=== PATIENT | female | born 1955 | race Caucasian/White ===

== ENCOUNTER 2018-11-27 09:27 | Emergency (ER) | payer BC ==
[2018-11-27 10:03] VITALS: BP 160/82
--- NOTE | 2018-11-27 10:10 | UC ---
Eye Complaint HPI - HPI Summary HPI Summary: 63-year-old female who had a stye in her right eye approximate 1 week ago. It has improved however she states it continues to bother her with some yellowish crustiness to it. She denies any visual changes. - History of Current Complaint Chief Complaint: UCEye Stated Complaint: RT EYE COMPLAINT Time Seen by Provider: 11/27/18 09:57 Hx Obtained From: Patient ?: No Onset/Duration: Gradual Onset Timing: Constant Severity Initially: Mild Severity Currently: Mild Pain Intensity: 0 Location of Injury: Other Aggravating Factor(s): Nothing - No injury Alleviating Factor(s): Nothing Associated Signs And Symptoms: Positive: Drainage (Purulent) - Patient has had some drainage from the stye and some crustiness in that area. - Allergies/Home Medications Allergies/Adverse Reactions: Allergies Allergy/AdvReac Type Severity Reaction Status Date / Time No Known Allergies Allergy Verified 11/27/18 10:03 Home Medications: Home Medications Cholecalciferol (Vitamin D3) [Vitamin D3] 1 tab PO DAILY 11/27/18 [History Confirmed 11/27/18] PMH/Surg Hx/FS Hx/Imm Hx Previously Healthy: Yes - Surgical History Surgical History: None Surgery Procedure, Year, and Place: c section - Family History Known Family History: Positive: None - Social History Alcohol Use: Rare Substance Use Type: None Smoking Status (MU): Former Smoker When Did the Patient Quit Smoking/Using Tobacco: 1998 Household Exposure Type: Cigarettes - Immunization History Most Recent Influenza Vaccination: not this season Review of Systems All Other Systems Reviewed And Are Negative: Yes Eyes: Positive: Drainage - Patient has had some drainage from the stye. The conjunctivae is erythematous around the stye but only there. The sclerae are not inflamed. Is Patient Immunocompromised?: No Physical Exam Triage Information Reviewed: Yes Appearance: Well-Appearing, No Pain Distress, Well-Nourished Vital Signs: Initial Vital Signs Temp 98.1 F 11/27/18 10:00 Pulse 66 11/27/18 10:00 Resp 18 11/27/18 10:00 BP 160/82 11/27/18 10:00 Pulse Ox 100 11/27/18 10:00 Vital Signs Reviewed: Yes Eyes: Positive: Conjunctiva Clear, Other: - [place], EOMI, patient has a stye at the outer canthus of the right lower eyelid which has some crustiness to it. The remaining conjunctiva and sclera are not injected. Respiratory: Positive: Lungs clear, Normal breath sounds, No respiratory distress, No accessory muscle use Cardiovascular: Positive: RRR, No Murmur, Pulses Normal, Brisk Capillary Refill Eye Complaint Course/Dx - Course Course Of Treatment: Patient is comfortable here. I'm going to treat stye with some erythromycin ointment twice a day topically and the patient is to follow-up with her primary care provider if no improvement by Saturday. - Differential Dx/Diagnosis Provider Diagnosis: Stye external Discharge - Sign-Out/Discharge Documenting (check all that apply): Patient Departure All imaging exams completed and their final reports reviewed: No Studies - Discharge Plan Condition: Good Disposition: HOME Prescriptions: Erythromycin OPHTH.OINT* [Ilotycin OPHTH.OINT*] 1 applic RIGHT EYE BID 7 Days # 1 ophth.oint Patient Education Materials: Stye (ED) Referrals: Valentín Beth MD [Primary Care Provider] - Additional Instructions: Apply cold compresses to right eye have swelling, apply the ointment to the stye only twice a day, try not to rub her eye, follow-up with your primary care provider on Saturday if no improvement. - Billing Disposition and Condition Condition: GOOD Disposition: Home
== END 2018-11-27 10:16 | disposition home or self-care (01) ==
LOC: UCCORT 09:27
DX: H00.012 Hordeolum externum right lower eyelid (principal); Z87.891 Personal history of nicotine dependence
CPT/HCPCS: 99202; G0463